=== PATIENT | female | born 1995 | race Two or more races ===

== ENCOUNTER 2020-11-02 14:58 | Emergency (ER) | payer OTHER ==
[~2020-11-02] VITALS: Ht 152.4 cm; Wt 81.6 kg
[~2020-11-02 14:58] MED LIST: AMOX1TAB12 PO; CEFUROXIME500 MG PO; KETO10TA2 PO; ORASEP SPRAY30 ML MM; ORPH100T PO; SEPTRA DS TABLE1 TAB PO; TUSSI-PRES LIQ120 ML PO; URIN D.S. TABLE1 TAB PO; ZYRTEC10 MG PO
== END 2020-11-02 20:01 | disposition home or self-care (01) ==
LOC: ER 14:58
DX: S30.814A Abrasion of vagina and vulva, initial encounter (principal); N89.8 Other specified noninflammatory disorders of vagina; X58.XXXA Exposure to other specified factors, initial encounter; Y93.89 Activity, other specified; Y92.89 Other specified places as the place of occurrence of the external cause; Y99.8 Other external cause status

== ENCOUNTER 2020-12-16 17:37 | Emergency (ER) | payer OTHER ==
[~2020-12-16] VITALS: Ht 152.4 cm; Wt 90.3 kg
[2020-12-16] MEDS ORDERED: AZITHROMYCIN500 MG PO (22:58)
[2020-12-16] MEDS ORDERED: MELATONIN10 M2 PO (22:58)
[2020-12-16] MEDS ORDERED: ACETAMINOPHEN650 M2 PO (22:58)
[2020-12-16] MEDS ORDERED: COLCHICINE0.6 MG PO (22:58)
[2020-12-16] MEDS ORDERED: VITAMIN C WIT1000 MG PO (22:58)
[2020-12-16] MEDS ORDERED: MEDROLPACK PO (22:58)
[2020-12-16] MEDS ORDERED: VITAMIN D3-ALO1 EACH PO (22:58)
[2020-12-16] MEDS ORDERED: IVERMECTIN3 MG PO (22:58)
== END 2020-12-16 23:32 | disposition home or self-care (01) ==
LOC: ER 17:37
DX: U07.1 COVID-19 (principal); B34.9 Viral infection, unspecified

== ENCOUNTER 2021-07-13 15:10 | Inpatient (IN) | payer OTHER ==
[~2021-07-13] VITALS: Ht 152.4 cm; Wt 88.9 kg
[~2021-07-13 15:10] MED LIST changes: +ACETAMINOPHEN650 M2 PO; +AZITHROMYCIN500 MG PO; +COLCHICINE0.6 MG PO; +IVERMECTIN3 MG PO; +MEDROLPACK PO; +MELATONIN10 M2 PO; +VITAMIN C WIT1000 MG PO; +VITAMIN D3-ALO1 EACH PO
--- NOTE | 2021-07-13 15:18 | NUR ---
SE RECIBE PACIENTE FEMENINA DE 26 ANOS DE EDASD DESPIERTA Y ALERTA CON QUEJA PRINCIPAL DE DOLOR ABDOMINAL DESDE HACE VARIOS LOWE Y NAUSEAS
--- NOTE | 2021-07-13 16:34 | NUR ---
SE ORIENTA PTE SOBRE EL TRATAMIENTO ORDENADO POR EL DR YadavCRENSHAW PTE ALERTA Y ORIENTADO POR 3 SE REALIZAN MUESTRAS DE LABORATORIO Y SE ADMINISTRAN MEDICAMENTO HILDA ORDEANDO. PTE SE MANTIENE EN OBSERVACION Y BAJO TRATAMIENTO EN ESEPRA DE SONOGRAMA
--- NOTE | 2021-07-14 00:24 | NUR ---
PTE ALERTA Y ORIENTADA X 3 ESFERAS EN MITRA CON BARANDAS ELEVADAS,SIN FAMILIAR AL MOMENTO DE LA CANDICE,NO REFIERE DOLOR ABDOMINAL AL MOMENTO.REFIERE MOLESTIA EN AREA DE VENOPUNCION,PTENTE Y ÁNGEL DE EDEMA,SE RETIRA LA MISMA A PETICION DE PTE Y SE CANALIZA NUEVAMENTE BAJO MEDIDAS ASEPTICAS,PENDIENTE A EVALUACION DE DR DU.
--- NOTE | 2021-07-14 07:09 | NUR ---
SE RECIBE PTE FEMENINA DE 26 YRS ALERTA CONCIENTE Y TRANQUILA EN MITRA CON BARANDAS ELEVADA. SE LE RICHARD S/V LA CUAL SE DOCUMETA. PTE EN ESPERA DEL DR.RODRIGUEZ HALLPOR UN DX DE CHOLELITIASIS. SE MANTIENE AL MOMENTO ÁNGEL DE EDOLOR Y SE OBSERVA POR CAMBIOS.
== END 2021-07-15 14:42 | disposition home or self-care (01) | DRG 419 ==
LOC: ER 15:10 → SEC-K 07-14 07:22 → O/R 07-14 07:22 → SEC-K 07-14 11:43 → O/R 07-14 13:34 → SURH 07-14 14:59
PROVIDERS: ADMIT Surgery; ATTEND Surgery
PROC: BF532Z0 Other Imaging of Gallbladder and Bile Ducts using Fluorescing Agent, Intraoperative (ICD-10-PCS; 2021-07-14)
PROC: 0FT44ZZ Resection of Gallbladder, Percutaneous Endoscopic Approach (ICD-10-PCS; principal; 2021-07-14 11:00)
DX: K80.10 Calculus of gallbladder with chronic cholecystitis without obstruction (principal); Z20.822 Contact with and (suspected) exposure to COVID-19

== ENCOUNTER 2021-09-30 12:42 | Emergency (ER) | payer OTHER ==
[~2021-09-30] VITALS: Ht 152.4 cm; Wt 85.7 kg
[2021-09-30] MEDS ORDERED: MEDROLPACK PO (15:17)
[2021-09-30] MEDS ORDERED: ALL DAY ALLERGY10 M3 PO (15:17)
[2021-09-30] MEDS ORDERED: TRIAMCINOLONE A15 G4 TOP (15:17)
== END 2021-09-30 15:28 ==
LOC: ER 12:42
DX: L50.9 Urticaria, unspecified (principal)

== ENCOUNTER 2021-12-16 15:21 | Emergency (ER) | payer OTHER ==
[~2021-12-16] VITALS: Ht 152.4 cm; Wt 77.1 kg
[~2021-12-16 15:21] MED LIST changes: +ALL DAY ALLERGY10 M3 PO; +TRIAMCINOLONE A15 G4 TOP
== END 2021-12-16 20:30 | disposition home or self-care (01) ==
LOC: ER 15:21
DX: K52.9 Noninfective gastroenteritis and colitis, unspecified (principal)

== ENCOUNTER 2022-03-25 15:46 | Emergency (ER) | payer OTHER | END 2022-03-25 22:51 | disposition left against medical advice (07) | LOC: ER 15:46 | DX: Z53.21 Procedure and treatment not carried out due to patient leaving prior to being seen by health care provider (principal) ==

== ENCOUNTER 2022-04-23 16:49 | Emergency (ER) | payer OTHER ==
[~2022-04-23] VITALS: Ht 152.4 cm; Wt 81.6 kg
== END 2022-04-23 20:47 | disposition home or self-care (01) ==
LOC: ER 16:49
DX: M94.0 Chondrocostal junction syndrome [Tietze] (principal)

== ENCOUNTER 2023-06-23 13:11 | Outpatient (CLI) | payer OTHER | END 2023-06-23 13:24 | disposition home or self-care (01) | LOC: SONOGRAMA 13:11 | DX: R10.9 Unspecified abdominal pain (principal); N20.9 Urinary calculus, unspecified ==

== ENCOUNTER → 2025-01-01 | Emergency (ER) | payer OTHER ==
[~2025-01-01] VITALS: Ht 152.4 cm; Wt 81.6 kg
[~2025-01-01] MED LIST changes: +DEXAMETHASONE 4 MG TABLET PO STA; +DEXAMETHASONE SODIUM PHOSPHATE 4 MG/ML VIAL ONE; +KETOROLAC TROMETHAMINE 60 MG VIAL IM ONE; +KETOROLAC TROMETHAMINE 60 MG VIAL IM STA; +TRAMADOL HCL 50 MG TABLET PO STA
== END | disposition home or self-care (01) ==
LOC: ER 08:48
DX: M54.42 Lumbago with sciatica, left side (principal)

== ENCOUNTER 2025-05-25 11:36 | Emergency (ER) | payer OTHER ==
[~2025-05-25] VITALS: Ht 152.4 cm; Wt 81.6 kg
[~2025-05-25 11:36] MED LIST changes: -DEXAMETHASONE 4 MG TABLET PO STA; -DEXAMETHASONE SODIUM PHOSPHATE 4 MG/ML VIAL ONE; -KETOROLAC TROMETHAMINE 60 MG VIAL IM ONE; -KETOROLAC TROMETHAMINE 60 MG VIAL IM STA; -TRAMADOL HCL 50 MG TABLET PO STA
[2025-05-25 12:08] LABS: URINE APPEARANCE Clear; URINE BILIRRUBIN Negative (NEGATIVE); URINE BLOOD Trace; URINE COLOR Yellow; URINE GLUCOSE Negative (NEGATIVE); URINE KETONE Negative (NEGATIVE); URINE LEUKOCYTE Negative; URINE NITRATE Negative; URINE PROTEIN Negative (NEGATIVE); URINE UROBILINOGEN 0.2 E.U./dl
[2025-05-25 12:08] LABS: BASO % 0.4 % (0.1-1.2); EOS # 0.07 (0.04-0.54); EOS % 0.8 % (0.7-7.0); LYMPH # 2.24 (1.18-3.74); LYMPH % 27.2 % (19.3-53.1); MEAN PLATELET VOLUME 10.00 fl (9.4-12.4); MONO # 0.39 (0.24-0.82); MONO % 4.7 % (4.7-12.5); NEUT # 5.47 (1.56-6.13); NEUT % 66.4 % (34.0-71.1); RED CELL DISTRIBUTION WIDTH 11.9 % (11.6-14.4)
[2025-05-25 12:11] LABS: URINE BACTERIA 12.0 uL (0.0-1933); URINE EPITHELIAL CELLS 10.2 uL (0.0-38.8); URINE RBC 5.2 uL (0.0-20.8); URINE WBC 4.7 uL (0.0-23.2)
[2025-05-25 12:23] LABS: URINE CAST 0.43 uL (0.0-1.40)
[2025-05-25 12:45] LABS: ALT/SGPT 12.0 U/L (12-78); AST/SGOT 11.0 U/L (15-37); BILIRUBIN TOTAL 0.33 mg/dL (0.3-1.2); BUN CREA RATIO 14.0 (7.0-25.0); CREATININE SERUM 0.72 mg/dL (0.55-1.02); GFR 95.77; GLOBULINA 4.1 G/DL (2.4-3.5); GLUCOSE FASTING 125.0 mg/dL (65-100); OSMOLALITY SERUM 282.0 MOSM/KG (275-295)
[2025-05-25] MEDS ORDERED: KETOROLAC TROMETHAMINE 30 MG VIAL IM STA (13:00)
[2025-05-25] MEDS ORDERED: ORPHENADRINE CITRATE 30 MG/ML AMPUL IM STA (13:01)
[2025-05-25] MEDS ORDERED: KETOROLAC TROMETHAMINE 30 MG VIAL ONE (13:01)
[2025-05-25] MEDS ORDERED: ORPHENADRINE CITRATE 30 MG/ML AMPUL ONE (13:02)
== END 2025-05-25 13:13 | disposition home or self-care (01) ==
LOC: ER 11:36
PROVIDERS: General Practice
DX: M54.9 Dorsalgia, unspecified (principal); N39.0 Urinary tract infection, site not specified